=== PATIENT | male | born 1980 | race Caucasian/White ===

== ENCOUNTER 2017-05-26 15:52 | Emergency (ER) | payer SELFPAY ==
[2017-05-26] MEDS ORDERED: Morphine INJ* 4 MG/ML 1 ML CARPUJECT IV ONE (17:26)
[2017-05-26] MEDS ORDERED: NS 0.9% 1000 ML* 2,000 ML IV ONE (17:26)
[2017-05-26] MEDS ORDERED: Ondansetron INJ* 2 MG/ML VIAL IV ONE (17:26)
[2017-05-26] MEDS ORDERED: Acetaminophen TAB* 325 MG PO ONE (17:26)
[2017-05-26 17:51] LABS: ABS Basophils 0 10^3/ul (0-0.2); ABS Eosinophils 0 10^3/ul (0-0.6); ABS Monocytes 0.3 10^3/ul (0-0.8); ABS Neutrophils 11.2 10^3/ul (1.5-7.7); ABS Nucleated RBC 0 10^3/ul; Eosinophil % 0.2 % (0-6); Hematocrit 44 % (42-52); Hemoglobin 14.9 g/dl (14.0-18.0); Lymphocyte % 7.9 % (25-47); Mean Corpuscular HGB Conc 34 g/dl (31-36); Mean Corpuscular Hemoglobin 29 pg (27-31); Mean Corpuscular Volume 85 fL (80-94); Mean Platelet Volume 7 um3 (7.4-10.4); Nucleated Red Blood Cells % 0; Platelet Count 292 10^3/ul (150-450); Red Blood Count 5.16 10^6/ul (4.0-5.4); Red Cell Distribution Width 13 % (10.5-15); White Blood Count 12.5 10^3/ul (3.5-10.8)
[2017-05-26 18:01] LABS: EGFR Non-African American 166.7 (>60)
--- NOTE | 2017-05-26 19:35 | RAD ---
INDICATION: Flulike symptoms COMPARISON: None TECHNIQUE: PA and lateral views of the chest were obtained. FINDINGS: The heart and mediastinum are normal in size and contour. Overlying the mid-level lower left lung there is a cluster of hyperdense foci measuring 8 mm in greatest dimension. The appearance is most consistent with granulomas. Otherwise the lungs are grossly clear. There is no evidence of large pleural effusion. Visualized bones are normal for the patient's age. There is no radiographic evidence of free air beneath the diaphragm IMPRESSION: No radiographic evidence of acute cardiopulmonary disease.
[2017-05-26] MEDS ORDERED: HYDROcodone/ACETAMIN 5-325 MG* 1 TAB PO ONE (20:37)
[2017-05-26] MEDS ORDERED: NS 0.9% 1000 ML* 1,000 ML IV ONE (20:37)
[2017-05-26] MEDS ORDERED: Metoclopramide IV* 5 MG/ML 2 ML VIAL IV SLOW PU ONE (22:34)
[2017-05-27 00:22] LABS: Urine Appearance Clear; Urine Blood Negative (Negative); Urine Color Yellow; Urine Ketones 1+ (Negative); Urine Protein Negative (Negative); Urine Specific Gravity 1.019 (1.010-1.030); Urine Urobilinogen Negative (Negative)
[2017-05-27] MEDS ORDERED: Iohexol 300* (CONTRAST) 10 ML SDV IV ONE (01:42)
--- NOTE | 2017-05-27 04:38 | PN ---
Radha Ramachandran Edward, scribed for Stephania Avitia MD on 05/27/17 at 0157 . Progress Note - Progress Note Date of Service: 05/27/17 Note: Pt signed out by Dr. Brown pending US and CT results and dispo. ABD US - Multiple gallbladder polyps are noted. No gallstones. No gallbladder wall thickening. No pericholecystic fluid. Normal common bile duct 2.8 mm. There is slight fullness of the right renal collecting system without gross hydronephrosis. Correlate with any right flank pain/renal colic. No RUQ free fluid.Adjacent to the uncinate process of the pancreas there is a 3.6 [id number] mass like structure could be pancreatic/peripancreatic mass or enlarged lymph node. this should be evaluated with CT to characterize more accurately. ABD/PEL CT - I cannot define a discrete pancreatic mass. Since there was a finding on the ultrasound, this could be followed up with pancreatic MR to make sure that there is not a mass that is blending in with the rest of the pancreas. Normal liver. Normal spleen. No obvious gallbladder abnormalities. Normal adrenal glands. Normal kidneys urinary tracts and urinary bladder. There is some thickening of the wall of the transverse colon. In a patient with diarrhea, the possibility of a very mild colitis should be considered. However this could also be due to nondistention. There is sigmoid diverticulosis. No diverticulitis. There is some thickening of the chang of the gastric antrum which could be related to gastritis. Reviewed US and CT results with him on re-eval at 04:30. Told him he needed an MR of his pancreas according to the radiologist. Pt will be d/c with f/u with PCP who will get him an MR appointment. Pt is feeling better on re-eval. Dx - flu-like illness The documentation as recorded by the Radha florian Edward accurately reflects the service I personally performed and the decisions made by , Stephania Avitia MD.
[2017-05-27 05:01] VITALS: BP 112/72
--- NOTE | 2017-05-27 07:31 | RAD ---
INDICATION: Epigastric pain vomiting elevated white blood count. COMPARISON: There are no prior studies available for comparison. TECHNIQUE: Multiple real-time images of the right upper quadrant were obtained. FINDINGS: There are multiple small gallbladder wall polyps. No gallbladder wall thickening or pericholecystic fluid is seen. No positive sonographic Muller sign is noted. No intra or extrahepatic ductal distention is present. The common bile duct measured 0.3 cm in diameter. The liver is normal in size without significant focal abnormality. The pancreas is partially obscured by overlying bowel gas. Adjacent to and possibly involving the uncinate process of the pancreas there is a hypoechoic mass like structure measuring 3.6 x 1.3 x 3.0 cm in size. No pancreatic ductal distention is seen. The right kidney is normal in size without evidence for hydronephrosis. IMPRESSION: 1. MULTIPLE SMALL GALLBLADDER WALL POLYPS. 2. THERE IS A HYPOECHOIC MASS ADJACENT TO AND POSSIBLY INVOLVING THE UNCINATE PROCESS OF THE PANCREAS ALTERNATIVELY POSSIBLY REPRESENTING AN ENLARGED LYMPH NODE. RECOMMEND A CT OF THE ABDOMEN AND PELVIS WITH INTRAVENOUS AND ORAL CONTRAST FOR FURTHER EVALUATION.
--- NOTE | 2017-05-27 08:09 | RAD ---
CLINICAL HISTORY: Nausea, vomiting and diarrhea COMPARISON: None TECHNIQUE: Contrast enhanced CT examination of the abdomen and pelvis from the lung bases through the initial tuberosities. The patient received 85 mL Omnipaque 300 intravenously prior to imaging.The patient received oral contrast as well prior to imaging. FINDINGS: VISUALIZED LUNG BASES: The visualized lung bases are grossly clear. There is no pleural effusion. ABDOMEN AND PELVIS: The liver, spleen, pancreas and adrenal glands are grossly normal in appearance. The gallbladder is normal. The kidneys are normal in appearance without focal mass, calcification or signs of hydronephrosis. The small and large bowel are not distended. The patient's normal appendix is identified in the right lower quadrant measuring 5 mm in diameter (coronal image 35). There are distal colonic diverticula that become most concentrated at the rectosigmoid colon. There is no gross retroperitoneal or mesenteric lymphadenopathy. The pelvic viscera is normal in appearance. The abdominal aorta and iliac arteries are normal in course and diameter. Degenerative changes include multilevel loss of intervertebral disc height involving the lower thoracic and lumbar spine.There are no sinister bone lesions. IMPRESSION: 1. The low echogenicity lesion seen adjacent to the uncinate process on the May 26, 2017 ultrasound is not seen on this CT examination. 2. Diverticulosis without acute inflammatory change. 3. Additional mild chronic and degenerative changes described in the body of the report.
--- NOTE | 2017-06-07 12:04 | ED ---
Aggie Ramachandran Gabriel, scribed for Alessandro Brown MD on 05/26/17 at 1623 . Influenza-Like Illness - HPI Summary HPI Summary: This patient is a 36 year old M presenting to [facility] accompanied by his with a chief complaint of flu like illness that began 36 hours ago. The patient rates the pain 3/10 in severity. Symptoms aggravated by movement. `Patient reports chills, nausea, diarrhea, diaphoresis, weakness, vomiting, fever, ABD pain, CP, and fatigue. Pt was seen at [facility] and was referred here. Pt had the same symptoms 2 weeks ago and has had no water since last night. - History of Current Complaint Chief Complaint: EDFluSymptoms Hx Obtained From: Patient Onset/Duration: Lasting Days, Still Present Severity: Mild Associated Signs & Symptoms: Fever, Vomiting, Diarrhea - Allergy/Home Medications Allergies/Adverse Reactions: Allergies Allergy/AdvReac Type Severity Reaction Status Date / Time No Known Allergies Allergy Verified 05/26/17 15:58 PMH/Surg Hx/FS Hx/Imm Hx Endocrine/Hematology History: Denies: Hx Diabetes, Hx Sickle Cell Disease, Hx Thyroid Disease Cardiovascular History: Denies: Hx Cardiac Arrest, Hx Cardiomegaly Respiratory History: Denies: Hx Chronic Obstructive Pulmonary Disease (COPD) GI History: Denies: Hx Gastrointestinal Bleed History: Denies: Hx Acute Renal Failure Infectious Disease History: No Infectious Disease History: Denies: Traveled Outside the [place] in Last 30 Days - Family History Known Family History: Negative: Renal Disease, Respiratory Disease, Seizure Disorder - Social History Occupation: Employed Full-time Lives: With Family Alcohol Use: Occasionally Hx Substance Use: No Substance Use Type: Reports: None Hx Tobacco Use: No Smoking Status (MU): Never Smoked Tobacco Review of Systems Positive: Fever, Chills, Skin Diaphoresis Positive: Chest Pain Negative: Shortness Of Breath, Cough Positive: Abdominal Pain, Vomiting, Diarrhea, Nausea Negative: dysuria, hematuria Negative: Edema Positive: Rash Neurological: Negative - dizziness Positive: Weakness All Other Systems Reviewed And Are Negative: Yes Physical Exam - Summary Physical Exam Summary: Constitutional: Well-developed, Well-nourished, Alert. (-) Distressed Skin: Warm, Dry HENT: Normocephalic; Atraumatic Eyes: Conjunctiva normal Neck: Musculoskeletal ROM normal neck. (-) JVD, (-) Stridor, (-) Tracheal deviation Cardio: Rhythm regular, rate normal, Heart sounds normal; Intact distal pulses; The pedal pulses are 2+ and symmetric. Radial pulses are 2+ and symmetric. (-) Murmur Pulmonary/Chest wall: Effort normal. (-) Respiratory distress, (-) Wheezes, (-) Rales Abd: Soft, (+) epigastric Tenderness, (-) Distension, (-) Guarding, (-) Rebound Musculoskeletal: (-) Edema Lymph: (-) Cervical adenopathy Neuro: Alert, Oriented x3 Psych: Mood and affect Normal Triage Information Reviewed: Yes Vital Signs On Initial Exam: Initial Vitals Temp Pulse Resp BP Pulse Ox 98.2 F 66 18 138/99 100 05/26/17 15:54 05/26/17 15:54 05/26/17 15:54 05/26/17 15:54 05/26/17 15:54 Vital Signs Reviewed: Yes Diagnostics - Vital Signs Vital Signs Temp Pulse Resp BP Pulse Ox 05/26/17 15:54 98.2 F 66 18 138/99 100 - Laboratory Lab Results: Lab Results 05/26/17 05/26/17 05/26/17 Range/Units 17:17 17:35 17:35 WBC 12.5 H (3.5-10.8) 10^3/ul RBC 5.16 (4.0-5.4) 10^6/ul Hgb 14.9 (14.0-18.0) g/dl Hct 44 (42-52) % MCV 85 (80-94) fL MCH 29 (27-31) pg MCHC 34 (31-36) g/dl RDW 13 (10.5-15) % Plt Count 292 (150-450) 10^3/ul MPV 7 L (7.4-10.4) um3 Neut % (Auto) 89.4 H (38-83) % Lymph % (Auto) 7.9 L (25-47) % [place] % (Auto) 2.2 (1-9) % Eos % (Auto) 0.2 (0-6) % Baso % (Auto) 0.3 (0-2) % Absolute Neuts (auto) 11.2 H (1.5-7.7) 10^3/ul Absolute Lymphs (auto) 1.0 (1.0-4.8) 10^3/ul Absolute Monos (auto) 0.3 (0-0.8) 10^3/ul Absolute Eos (auto) 0 (0-0.6) 10^3/ul Absolute Basos (auto) 0 (0-0.2) 10^3/ul Absolute Nucleated RBC 0 10^3/ul Nucleated RBC % 0 Sodium 136 (133-145) mmol/L Potassium 4.0 (3.5-5.0) mmol/L Chloride 106 (101-111) mmol/L Carbon Dioxide 24 (22-32) mmol/L Anion Gap 6 (2-11) mmol/L BUN 7 (6-24) mg/dL Creatinine 0.55 L (0.67-1.17) mg/dL Est GFR ( Amer) 214.4 (>60) Est GFR (Non-Af Amer) 166.7 (>60) BUN/Creatinine Ratio 12.7 (8-20) Glucose 115 H (70-100) mg/dL Lactic Acid (0.5-2.0) mmol/L Calcium 9.4 (8.6-10.3) mg/dL Magnesium 1.9 (1.9-2.7) mg/dL Total Bilirubin 0.60 (0.2-1.0) mg/dL AST 9 L (13-39) U/L ALT 10 (7-52) U/L Alkaline Phosphatase 41 (34-104) U/L Troponin I 0.00 (<0.04) ng/mL Total Protein 7.0 (6.4-8.9) g/dL Albumin 4.3 (3.2-5.2) g/dL Globulin 2.7 (2-4) g/dL Albumin/Globulin Ratio 1.6 (1-3) Amylase 47 (29-103) U/L Lipase 28 (11.0-82.0) U/L TSH 0.51 (0.34-5.60) mcIU/mL Urine Color Urine Appearance Urine pH (5-9) Ur Specific [place] (1.010-1.030) Urine Protein (Negative) Urine Ketones (Negative) Urine Blood (Negative) Urine Nitrate (Negative) Urine Bilirubin (Negative) Urine Urobilinogen (Negative) Ur Leukocyte Esterase (Negative) Urine Glucose (Negative) Influenza A (Rapid) Negative (Negative) Influenza B (Rapid) Negative (Negative) 05/26/17 05/26/17 05/27/17 Range/Units 17:35 22:44 00:05 WBC (3.5-10.8) 10^3/ul RBC (4.0-5.4) 10^6/ul Hgb (14.0-18.0) g/dl Hct (42-52) % MCV (80-94) fL MCH (27-31) pg MCHC (31-36) g/dl RDW (10.5-15) % Plt Count (150-450) 10^3/ul MPV (7.4-10.4) um3 Neut % (Auto) (38-83) % Lymph % (Auto) (25-47) % [place] % (Auto) (1-9) % Eos % (Auto) (0-6) % Baso % (Auto) (0-2) % Absolute Neuts (auto) (1.5-7.7) 10^3/ul Absolute Lymphs (auto) (1.0-4.8) 10^3/ul Absolute Monos (auto) (0-0.8) 10^3/ul Absolute Eos (auto) (0-0.6) 10^3/ul Absolute Basos (auto) (0-0.2) 10^3/ul Absolute Nucleated RBC 10^3/ul Nucleated RBC % Sodium (133-145) mmol/L Potassium (3.5-5.0) mmol/L Chloride (101-111) mmol/L Carbon Dioxide (22-32) mmol/L Anion Gap (2-11) mmol/L BUN (6-24) mg/dL Creatinine (0.67-1.17) mg/dL Est GFR ( Amer) (>60) Est GFR (Non-Af Amer) (>60) BUN/Creatinine Ratio (8-20) Glucose (70-100) mg/dL Lactic Acid 0.9 (0.5-2.0) mmol/L Calcium (8.6-10.3) mg/dL Magnesium (1.9-2.7) mg/dL Total Bilirubin (0.2-1.0) mg/dL AST (13-39) U/L ALT (7-52) U/L Alkaline Phosphatase (34-104) U/L Troponin I 0.00 (<0.04) ng/mL Total Protein (6.4-8.9) g/dL Albumin (3.2-5.2) g/dL Globulin (2-4) g/dL Albumin/Globulin Ratio (1-3) Amylase (29-103) U/L Lipase (11.0-82.0) U/L TSH (0.34-5.60) mcIU/mL Urine Color Yellow Urine Appearance Clear Urine pH 7.0 (5-9) Ur Specific [place] 1.019 (1.010-1.030) Urine Protein Negative (Negative) Urine Ketones 1+ H (Negative) Urine Blood Negative (Negative) Urine Nitrate Negative (Negative) Urine Bilirubin Negative (Negative) Urine Urobilinogen Negative (Negative) Ur Leukocyte Esterase Negative (Negative) Urine Glucose Negative (Negative) Influenza A (Rapid) (Negative) Influenza B (Rapid) (Negative) Result Diagrams: 05/26/17 17:35 05/26/17 17:35 Lab Statement: Any lab studies that have been ordered have been reviewed, and results considered in the medical decision making process. - Radiology CXR Radiology Interpretation Completed By: Radiologist - No radiographic evidence of acute cardiopulmonary disease. ED physician has reviewed this radiology report. - EKG 1726 Cardiac Rate: NL EKG Rhythm: Sinus Rhythm - at 76 BPM EKG Interpretation: No STEMI, Artifact Re-Evaluation - Re-Evaluation First Eval Re-Evaluation Time: 17:35 Change: Unchanged Comment: Patient denies having a pacemaker. Second Eval Re-Evaluation Time: 22:44 Change: Unchanged - The patient reports nausea and epigastric tenderness. I will administer more antiemetic and order US of the gallbladder. Flu Symptom Course/Dx - Course Assessment/Plan: This patient is a 36 year old M presenting to [facility] accompanied by his with a chief complaint of flu like illness that began 36 hours ago. The patient rates the pain 3/10 in severity. Symptoms aggravated by movement. `Patient reports chills, nausea, diarrhea, diaphoresis, weakness, vomiting, fever, ABD pain, CP, and fatigue. Pt was [facility] at [facility] and was referred here. Pt had the same symptoms 2 weeks ago and has had no water since last night. An EKG reveals NSR. CXR reveals, per radiologist, No radiographic evidence of acute cardiopulmonary disease. Test results with no significant abnormalities. In the ED course the patient was given morphine, Zofran, [place], and IV fluids. Patient will be signed out to Dr. Avitia awaiting US. - Diagnoses Provider Diagnoses: Viral syndrome Discharge - Discharge Plan Condition: Good Disposition: HOME Discharge Disposition Comment: signed out to Dr. Avitia Patient Education Materials: Viral Syndrome (ED) Referrals: [facility] PHYSICIAN REFERRAL [Outside] - 4 Days (PLEASE F/U IN 3-5 DAYS) No Primary Care Phys,NOPCP [Primary Care Provider] - Additional Instructions: PLEASE MAKE AN APPOINTMENT FOR AN MR OF YOUR PANCREAS, RECOMMENDED BY THE RADIOLOGIST The documentation as recorded by the Aggie florian Gabriel accurately reflects the service I personally performed and the decisions made by me, Alessandro Brown MD.
== END 2017-05-27 05:10 ==
LOC: ED 15:52
DX: J11.1 Influenza due to unidentified influenza virus with other respiratory manifestations (principal); B34.9 Viral infection, unspecified; K82.4 Cholesterolosis of gallbladder
CPT/HCPCS: 36415; 71046; 74177; 76705; 80053; 81003; 82150; 83605; 83690; 83735; 84443; 84484; 85025; 87502; 93005; 96360; 96374; 96375; 99284; A9270-GY; J2270; J2405; Q9967